=== PATIENT | female | born 1990 | race Caucasian/White ===

== ENCOUNTER 2023-02-14 12:16 | Outpatient (CLI) | payer BC, SELFPAY | END 2023-02-14 12:17 | disposition home or self-care (01) | LOC: NFLDREF 12:17 | PROVIDERS: PCP Family Medicine; Visit Provider Obstetrics & Gynecology | DX: Z32.02 Encounter for pregnancy test, result negative (principal) | CPT/HCPCS: 84702 ==

== ENCOUNTER 2023-03-03 09:48 | Emergency (ER) | payer BC, SELFPAY ==
[2023-03-03 09:55] VITALS: BP 119/72; PULSE 78; RESP 18; TEMP 36.8; O2SAT 97; BMI 40.8
--- NOTE | 2023-03-03 10:55 | ED.PREGNANCY ---
HPI - General Time Seen by Provider: 11:00 Date Seen: 03/03/23 Chief complaint: OB/Uterine Contractions Stated complaint: ectopic Time Seen by Provider: 03/03/23 10:55 Source: patient and RN notes reviewed Mode of arrival: ambulatory Limitations: no limitations History of Present Illness HPI Narrative: Patient is a 33-year-old female coming in with concern of possible ectopic . She last tract a menstrual cycle in November. Does not remember if she had 1 or forgot to write it down in December. She states has been a lot of stress. She typically is been very regular. She had a positive home test a couple of weeks ago. She has started having some lower pelvic cramping. There is no bleeding or vaginal discharge. No urinary symptoms. She has had 1 prior and has a 11-year-old child. Believe she has a positive. Again, no vaginal bleeding. She is still exhibiting symptoms nausea, breast tenderness and fatigue. She has not had any imaging this yet. Has had some lower pelvic pain. MD Complaint: abdominal pain and contractions Related Data Home Medications Medication Instructions Recorded Confirmed No Known Home Medications 03/03/23 03/03/23 Allergies Allergy/AdvReac Type Severity Reaction Status Date / Time Penicillins Allergy Intermediate Hives Verified 09/09/22 15:53 Review of Systems Status of ROS: Reports: 6 or more systems reviewed and unremarkable except as noted in History and below Exam Const: Vital Signs, click to edit/add: Vital Signs - 24 hr 03/03/23 09:55 Temperature 98.3 F Pulse Rate [Right Pulse Oximeter] 78 Respiratory Rate 18 Blood Pressure [Ri ght Upper Arm] 119/72 Pulse Oximetry 97 Oxygen Delivery Me thod Room Air Documenting provider has reviewed patient's vital signs: yes Common normals: no apparent distress, oriented x3, no limitations, healthy appearing, alert and well nourished General appearance: cooperative, comfortable, well kempt and well developed Nutritional appearance: obese HENMT: Common normals: normocephalic, head/scalp atraumatic, hearing grossly normal bilaterally, external nose normal, nasal mucous membranes and turbinates normal and moist oral mucous membranes Head and scalp: normocephalic and atraumatic Nose: external nose normal and nasal mucous membranes and turbinates normal Eye: Common normals: PERRL, EOMs intact bilaterally, conjunctivae normal and no scleral icterus Conjunctiva: conjunctiva(e) normal Pupil: PERRL Neck & C-Spine: Common normals: full ROM, no lymphadenopathy and supple Resp: Common normals: normal respiratory effort, no retractions, no use of accessory muscles and clear to auscultation bilaterally Effort & inspection: able to speak in complete sentences Auscultation: clear to auscultation bilaterally Cardio: Common normals: regular rate, regular rhythm, S1 normal heart sound, S2 normal heart sound, no gallops, no clicks, no murmurs and no rub Rate: regular rate Rhythm: regular rhythm Heart sounds: S1 normal and S2 normal GI: Common normals: Normal to inspection, nondistended, normoactive bowel sounds present, soft to palpation, no hepatosplenomegaly and no masses Palpation: soft and no hepatosplenomegaly Other: Body habitus does confound examination, do note some pelvic/suprapubic to right lower quadrant tenderness on palpation. No sense of rebound or guarding at this time. Neuro: Common normals: oriented x3 Sensorium/orientation: alert Psych: Appearance: well ket Course Course Hospital Course: Will be obtaining a limited obstetrical ultrasound, see if we can confirm a intrauterine and hopefully rule out ectopic . She understands will be doing some blood work with a CBC, quantitative hCG in case this needs following as well as confirming her blood type. She is not bleeding at this time however. Patient is currently hemodynamically stable. 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 I have reviewed with her that the radiologist has not confirmed her ultrasound, has not been read. It appears that there is the single intrauterine , her hCG level is at 42,000. However, the radiologist absolutely needs to over-read this. She is asking if she can go and I call her when the official read is in. I think it is reasonable. Time: 12:40 Reevaluation #2: Did call patient back with the normal ultrasound report with intrauterine and corpus luteum cyst. No discharge changes at this time, plan is as when she was provided verbal discharge while here. Time: 13:05 Vital Signs Vital signs: Initial Vital Signs Temperature 98.3 F 03/03/23 09:55 Temperature Source Temporal Artery Scan 03/03/23 09:55 Pulse Rate 78 03/03/23 09:55 Respiratory Rate 18 03/03/23 09:55 Blood Pressure 119/72 03/03/23 09:55 Blood Pressure Mean 87 03/03/23 09:55 Blood Pressure Position Sitting 03/03/23 09:55 Pulse Oximetry 97 03/03/23 09:55 Oxygen Delivery Method Room Air 03/03/23 09:55 Vital Signs Temperature 98.3 F 03/03/23 09:55 Pulse Rate 78 03/03/23 09:55 Respiratory Rate 18 03/03/23 09:55 Blood Pressure 119/72 03/03/23 09:55 Pulse Oximetry 97 03/03/23 09:55 Oxygen Delivery Method Room Air 03/03/23 09:55 Temperature 98.3 F 03/03/23 09:55 Pulse Rate 78 03/03/23 09:55 Respiratory Rate 18 03/03/23 09:55 Blood Pressure 119/72 03/03/23 09:55 Pulse Oximetry 97 03/03/23 09:55 Oxygen Delivery Method Room Air 03/03/23 09:55 MDM - OB/Uterine Contractions Lab Data Attestation: I reviewed the patient's lab results. Labs: Lab Results 03/03/23 Range/Units 11:05 WBC 7.82 (4.50-11.00) K/uL RBC 4.06 (4.00-5.20) m/uL Hgb 12.1 (12.0-16.0) gm/dL Hct 37.0 (33.0-51.0) % MCV 91 (80-100) fL MCH 30 (26-34) pg MCHC 33 (32-36) gm/dL RDW Coeff of Saw 13.0 (11.5-15.5) % Plt Count 270 (140-440) K/uL Neut % (Auto) 70.7 (42.0-72.0) % Lymph % (Auto) 21.7 (20-44) % [place] % (Auto) 6.4 (0.0-11.0) % Eos % (Auto) 0.6 (0.0-7.0) % Baso % (Auto) 0.3 (0.0-3.0) % Neut # (Auto) 5.53 (1.7-7.0) K/uL Lymph # (Auto) 1.70 (0.90-2.90) K/uL [place] # (Auto) 0.50 (0.00-0.90) K/UL Eos # (Auto) 0.05 (0.00-0.50) K/uL Baso # (Auto) 0.02 (0.00-0.30) K/uL HCG, Quant 99226.00 mIU/mL Blood Type A Positive Imaging Data Limited OB ultrasound: Attestation: I have reviewed the pertinent imaging results. My impression: Did briefly show patient pictures of the gestational sac while she was still here, still need to wait for radiologist over-read. Radiologist's impression: Patient: ROBER CANO Facility:?[facility] Patient ID:?[id number] Site Patient ID:?[id number]. Site :?[id number] Study:? OB Pelvis -03/03/2023 11:49:20 AM Ordering Physician:?Hawa Bain Final Report: INDICATION: Positive test, cramping TECHNIQUE: Ultrasound OB pelvis transvaginal. Real-time juan-scale imaging of the pelvis was performed. COMPARISON: None FINDINGS: Sonographic imaging demonstrates a single living intrauterine gestation. The embryo demonstrates a regular cardiac rate measuring 116 beats per minute. The embryo`s crown rump length measurement of 0.8 cm corresponds to a gestational age of 6 weeks 5 days with a sonographic due date of 10/22/2023. There is a normal appearing yolk sac. There are no gross abnormalities noted within the embryo at this early state of development. The placenta has not yet developed. There is no sign of perigestational hemorrhage. Maternal left ovarian corpus luteum measuring 2.1 centimeters. Trace free fluid. IMPRESSION: 1. Single live intrauterine gestation with a sonographic age of 6 weeks 5 days. 2. Maternal left ovarian corpus luteum. Dictated by Jb Watkins MD @ 03/03/2023 12:47:43 PM (Electronic Signature) Critical Care Time Critical Care Time Critical Care Time: No Discharge Plan Discharge Clinical Impression: Intrauterine , Abdominal cramping Patient Disposition: Home, Self-Care Condition: Stable Additional Instructions: Verbal instructions were given. I will call the patient with the formal ultrasound reading once it has been read by Radiology. She will keep her OB appointment that is scheduled for March 21. Have discussed that should she have increased cramping, development of any vaginal bleeding, would need re-evaluation. Prescriptions: No Action No Known Home Medications Follow Up/Referrals: Itz Stahl MD [Primary Care Provider] - Stand Alone Forms: [employer] Info Instructions
--- NOTE | 2023-03-03 11:00 | CRLHL7_ITS ---
For Patients: As a result of the Century Cures Act, medical imaging exams and procedure reports are released immediately into your electronic medical record. You may view this report before your referring provider. If you have questions, please contact your health care provider. INDICATION: Positive test, cramping TECHNIQUE: Ultrasound OB pelvis transvaginal. Real-time juan-scale imaging of the pelvis was performed. COMPARISON: None FINDINGS: Sonographic imaging demonstrates a single living intrauterine gestation. The embryo demonstrates a regular cardiac rate measuring 116 beats per minute. The embryo`s crown rump length measurement of 0.8 cm corresponds to a gestational age of 6 weeks 5 days with a sonographic due date of 10/22/2023. There is a normal appearing yolk sac. There are no gross abnormalities noted within the embryo at this early state of development. The placenta has not yet developed. There is no sign of perigestational hemorrhage. Maternal left ovarian corpus luteum measuring 2.1 centimeters. Trace free fluid. IMPRESSION: 1. Single live intrauterine gestation with a sonographic age of 6 weeks 5 days. 2. Maternal left ovarian corpus luteum. Dictated by Jb Watkins MD @ 03/03/2023 12:47:43 PM (Electronically Signed)
[2023-03-03 11:18] LABS: Basophils Absolute Auto 0.02 K/uL (0.00-0.30); Basophils Percent Auto 0.3 % (0.0-3.0); Eosinophils Absolute Auto 0.05 K/uL (0.00-0.50); Eosinophils Percent Auto 0.6 % (0.0-7.0); Hemoglobin* 12.1 gm/dL (12.0-16.0); Immature Granulocytes Abs Auto 0.02 K/uL (0.00-0.30); Immature Granulocytes Pct Auto 0.3 %; Lymphocytes Percent Auto 21.7 % (20-44); Mean Corpuscular HGB Conc 33 gm/dL (32-36); Mean Corpuscular Hemoglobin 30 pg (26-34); Mean Corpuscular Volume 91 fL (80-100); Monocytes Percent Auto 6.4 % (0.0-11.0); Neutrophils Absolute Auto 5.53 K/uL (1.7-7.0); Neutrophils Percent Auto 70.7 % (42.0-72.0); Platelet Count* 270 K/uL (140-440); Red Blood Count 4.06 m/uL (4.00-5.20); White Blood Count* 7.82 K/uL (4.50-11.00)
[2023-03-03 11:20] LABS: Slide Review Reflex No
--- NOTE | 2023-03-03 12:43 | PC.NURSE ---
Verbally discharged. Leave on tracker per Dr. Frances- she will call patient when final radiology report.
== END 2023-03-03 12:43 | disposition home or self-care (01) ==
PROVIDERS: Emergency Provider Family Medicine; PCP Family Medicine
DX: O26.891 Other specified pregnancy related conditions, first trimester (principal); R10.9 Unspecified abdominal pain
CPT/HCPCS: 36415; 76817; 84702; 85025; 86900; 86901; 99284

== ENCOUNTER 2023-05-22 14:38 | Outpatient (CLI) | payer BC, SELFPAY | END 2023-05-22 14:39 | disposition home or self-care (01) | LOC: NFLDREF 14:40 | PROVIDERS: PCP Family Medicine; Visit Provider Obstetrics & Gynecology | DX: N90.7 Vulvar cyst (principal) | CPT/HCPCS: 87070 ==

== ENCOUNTER 2023-05-26 23:24 | Emergency (ER) | payer BC, SELFPAY ==
[2023-05-26 23:31] VITALS: BP 126/69; PULSE 97; RESP 18; TEMP 36.2; O2SAT 98
[2023-05-27] VITALS (7 sets, daily range): BP systolic 105–117; BP diastolic 54–63; PULSE 77–105; O2SAT 96–98
[2023-05-27] MEDS: 0.9 % SODIUM CHLORIDE 1000 ml 1,000 ML IV (00:25)
--- NOTE | 2023-05-27 00:40 | ED_ITS ---
HPI - Abdominal Pain General Time Seen by Provider: 00:41 Date Seen: 05/27/23 Chief Complaint: Abdominal Pain Stated Complaint: 19 weeks, cramping Time Seen by Provider: 05/27/23 00:40 Source: patient, RN notes reviewed and old records reviewed Mode of arrival: ambulatory Limitations: no limitations History of Present Illness HPI narrative: 33-year-old 001 at 19 weeks gestation presents today with right-sided abdominal cramping that started yesterday. Worse with standing, better when laying on the right side. No urinary symptoms, has been constipated. Notes that she has not noted movement for couple of days, no leakage of fluid or vaginal bleeding. Prior appendectomy and cholecystectomy. No nausea or vomiting, no diarrhea but has been constipated. Related Data Previous Rx's Medication Instructions Recorded doxylamine 10 mg-pyridoxine (vit 1 tab PO QDAY #60 tabs 04/18/23 B6) 10 mg tablet,delayed release (Diclegis) vits no.126-ferrous fum 1 tab PO .QD #60 tabs 04/18/23 28 mg iron-folic acid 800 mcg tablet (Classic ) Allergies Allergy/AdvReac Type Severity Reaction Status Date / Time Penicillins Allergy Intermediate Hives Verified 05/22/23 14:04 [facility] Medical History (Updated 05/27/23 @ 02:26 by Nestor Levin MD) Genital herpes ?A60.00 - Herpesviral infection of urogenital system, unspecified (ICD-10) Tubo-ovarian abscess ?N70.93 - Salpingitis and oophoritis, unspecified (ICD-10) Surgical History (Updated 03/13/23 @ 14:35 by Germaine Horn PA-C) History of surgical removal of ganglion cyst ?Z98.890 - Other specified postprocedural states (ICD-10) History of laparoscopic cholecystectomy ?Z90.49 - Acquired absence of other specified parts of digestive tract (ICD- 10) History of appendectomy ?Z90.49 - Acquired absence of other specified parts of digestive tract (ICD- 10) Family History (Updated 03/13/23 @ 14:37 by Germaine Horn PA-C) Maternal Grandfather Depression Anxiety Paternal Grandmother Diabetes Uncle Diabetes Social History Smoking Status: Former smoker Do you use any of these nicotine containing products: None Second hand tobacco smoke exposure: No Little interest or pleasure in doing things: several days Feeling down, depressed, or hopeless: several days service: No Exam Narrative: Exam Narrative: General: Well-developed and well-nourished, no acute distress Head: Atraumatic and normocephalic Eyes: Pupils are equal reactive, extraocular motions intact, conjunctiva clear ENT: External nose and ears are normal, posterior pharynx without erythema or exudate Neck: No midline cervical tenderness, full spontaneous range of motion the neck, trachea midline, no adenopathy Heart: Regular rate and rhythm no murmurs or thrills Lungs: Clear to auscultation bilaterally without wheezes or crackles Abdomen: Gravid, right lower quadrant tenderness Musculoskeletal: No tenderness, deformity, or edema Neurologic: Awake, alert, and oriented x3, no gross focal neurologic deficits, cranial nerves intact as tested Psych: Mood and affect are appropriate Skin: No rashes Const: Vital Signs, click to edit/add: Vital Signs - 24 hr 05/26/23 23:31 05/27/23 00:57 05/27/23 01:00 Temperature 97.2 F L Pulse Rate 86 95 Pulse Rate [Left P ulse Oximeter] 97 Respiratory Rate 18 Blood Pressure Blood Pressure [Ri ght Upper Arm] 126/69 Pulse Oximetry 98 98 98 [facility] Room Air 05/27/23 01:01 05/27/23 01:15 05/27/23 01:30 Temperature Pulse Rate 94 83 105 H Pulse Rate [Left P ulse Oximeter] Respiratory Rate Blood Pressure 105/63 Blood Pressure [Ri ght Upper Arm] Pulse Oximetry 98 98 96 Oxygen Delivery Me thod 05/27/23 01:31 05/27/23 01:45 Temperature Pulse Rate 77 78 Pulse Rate [Left P ulse Oximeter] Respiratory Rate Blood Pressure 117/54 L Blood Pressure [Ri ght Upper Arm] Pulse Oximetry 98 96 Oxygen Delivery Dc thod Course Course Hospital Course: Patient seen and examined, prior records are reviewed. Patient presents today with right-sided abdominal pain in . Better when lying on that side, worse with standing. Marked right lower quadrant tenderness on exam, prior appendectomy cholecystectomy. Symptoms could be from round ligament pain, ovarian pathology. Colonic spasm also possible but will evaluate for other causes of abdominal pain as well. Tylenol ordered for pain initially. Reevaluation(s) Time of Reevaluation #1: 02:26 Reevaluation #1: Labs independently interpreted by me with normal CBC, reassuring basic panel, normal urinalysis. Ultrasound demonstrates mild intrauterine with no abnormalities of the right adnexa. Symptoms are most consistent with round ligament pain. Discussed diagnosis and plan with patient, she is stable for discharge. Vital Signs Vital signs: Initial Vital Signs Temperature 97.2 F L 05/26/23 23:31 Temperature Source Temporal Artery Scan 05/26/23 23:31 Pulse Rate 97 05/26/23 23:31 Pulse Rhythm Regular 05/26/23 23:31 Respiratory Rate 18 05/26/23 23:31 Blood Pressure 126/69 05/26/23 23:31 Blood Pressure Mean 88 05/26/23 23:31 Blood Pressure Position Sitting 05/26/23 23:31 Pulse Oximetry 98 05/26/23 23:31 Oxygen Delivery Method Room Air 05/26/23 23:31 Vital Signs Temperature 97.2 F L 05/26/23 23:31 Pulse Rate 97 05/26/23 23:31 Respiratory Rate 18 05/26/23 23:31 Blood Pressure 126/69 05/26/23 23:31 Pulse Oximetry 98 05/26/23 23:31 Oxygen Delivery Method Room Air 05/26/23 23:31 Temperature 97.2 F L 05/26/23 23:31 Pulse Rate 78 05/27/23 01:45 Respiratory Rate 18 05/26/23 23:31 Blood Pressure 117/54 L 05/27/23 01:31 Pulse Oximetry 96 05/27/23 01:45 Oxygen Delivery Method Room Air 05/27/23 00:57 MDM - Abdominal Pain Lab Data Labs: Lab Results 05/27/23 05/27/23 Range/Units 00:20 00:25 WBC 10.24 (4.50-11.00) K/uL RBC 3.58 L (4.00-5.20) m/uL Hgb 11.1 L (12.0-16.0) gm/dL Hct 32.7 L (33.0-51.0) % MCV 91 (80-100) fL MCH 31 (26-34) pg MCHC 34 (32-36) gm/dL RDW Coeff of Saw 13.7 (11.5-15.5) % Plt Count 211 (140-440) K/uL Neut % (Auto) 75.9 H (42.0-72.0) % Lymph % (Auto) 17.9 L (20-44) % [place] % (Auto) 4.6 (0.0-11.0) % Eos % (Auto) 0.5 (0.0-7.0) % Baso % (Auto) 0.2 (0.0-3.0) % Neut # (Auto) 7.80 H (1.7-7.0) K/uL Lymph # (Auto) 1.80 (0.90-2.90) K/uL [place] # (Auto) 0.50 (0.00-0.90) K/UL Eos # (Auto) 0.05 (0.00-0.50) K/uL Baso # (Auto) 0.02 (0.00-0.30) K/uL Abs Immat Gran (auto) 0.09 (0.00-0.30) K/uL Imm/Tot Granulo (auto) 0.9 % Sodium 137 (135-149) mmol/L Potassium 3.6 (3.6-5.1) mmol/L Chloride 103 (96-114) mmol/L Carbon Dioxide 25 (20-32) mmol/L BUN 6 (5-24) mg/dL Creatinine 0.4 L (0.5-1.5) mg/dL Estimated GFR 136 ml/min Glucose 86 (60-115) mg/dL Calcium 9.6 (8.4-10.6) mg/dL Urine Color Yellow (Yellow) Urine Appearance Clear (Clear) Urine pH 6.5 (5.0-8.5) Ur Specific [place] 1.020 (1.000-1.030) Urine Protein Negative (Negative) Urine Glucose (UA) Negative (Negative) Urine Ketones Negative (Negative) Urine Blood Negative (Negative) Urine Nitrite Negative (Negative) Urine Bilirubin Negative (Negative) Urine Urobilinogen 0.2 (0.2-1.0) Ur Leukocyte Esterase Negative (Negative) Urine RBC 0-2 (0-2) Urine WBC 0-2 (0-5) Ur Squamous Epith Cells Few (None-Few) Amorphous Sediment Few A (None) Urine Bacteria Few A (None) Discharge Plan Discharge Clinical Impression: Pain of round ligament Patient Disposition: Home, Self-Care Condition: Stable Instructions: Abdominal Pain in (ED) Activity Level: Activity as Tolerated Discharge Diet: Regular Prescriptions: No Action Classic 28 mg iron- 800 mcg tablet 1 tab PO .QD Qty: 60 3RF doxylamine-pyridoxine (vit B6) [Diclegis] 10-10 mg tablet,delayed release (DR/EC) 1 tab PO QDAY Qty: 60 0RF Follow Up/Referrals: Itz Stahl MD [Staff Physician] - Stand Alone Forms: [facility] Info Instructions
[2023-05-27 00:45] LABS: Appearance Urine Clear (Clear); Bilirubin Urine Negative (Negative); Blood Urine Negative (Negative); Color Urine Yellow (Yellow); Glucose Urine Negative (Negative); Ketones Urine Negative (Negative); Leukocyte Esterase Urine Negative (Negative); Nitrite Urine Negative (Negative); Protein Urine Negative (Negative); Urobilinogen Urine 0.2 (0.2-1.0); pH Urine 6.5 (5.0-8.5)
[2023-05-27 00:45] LABS: Basophils Absolute Auto 0.02 K/uL (0.00-0.30); Basophils Percent Auto 0.2 % (0.0-3.0); Eosinophils Absolute Auto 0.05 K/uL (0.00-0.50); Eosinophils Percent Auto 0.5 % (0.0-7.0); Hematocrit 32.7 % (33.0-51.0); Hemoglobin* 11.1 gm/dL (12.0-16.0); Immature Granulocytes Abs Auto 0.09 K/uL (0.00-0.30); Immature Granulocytes Pct Auto 0.9 %; Lymphocytes Percent Auto 17.9 % (20-44); Mean Corpuscular HGB Conc 34 gm/dL (32-36); Mean Corpuscular Hemoglobin 31 pg (26-34); Mean Corpuscular Volume 91 fL (80-100); Monocytes Percent Auto 4.6 % (0.0-11.0); Neutrophils Percent Auto 75.9 % (42.0-72.0); Platelet Count* 211 K/uL (140-440); RDW Coefficient of Variation % 13.7 % (11.5-15.5); Red Blood Count 3.58 m/uL (4.00-5.20); White Blood Count* 10.24 K/uL (4.50-11.00)
[2023-05-27 00:48] LABS: Slide Review Reflex No
[2023-05-27] MEDS: ACETAMINOPHEN 500 MG TABLET 1000 MG PO (00:53)
[2023-05-27 00:56] LABS: Amorphous Sediment Urine Few; Bacteria Urine Few; RBC Urine 0-2 (0-2); Squamous Epithelial Cell Urine Few (None-Few); WBC Urine 0-2 (0-5)
--- NOTE | 2023-05-27 01:02 | CRLHL7_ITS ---
For Patients: As a result of the Century Cures Act, medical imaging exams and procedure reports are released immediately into your electronic medical record. You may view this report before your referring provider. If you have questions, please contact your health care provider. INDICATION: Decreased movement, right lower quadrant pain. TECHNIQUE: Ultrasound OB pelvis transabdominal. Real-time juan-scale imaging of the fetus was performed. COMPARISON: None. FINDINGS: Sonographic imaging demonstrates a single living intrauterine gestation. Fetus demonstrates a regular cardiac rate of 150 beats per minute. Fetus has a breech orientation. The placenta lies posterior. Amniotic fluid volume appears normal, with single deepest pocket measuring 5.1 cm. The cervix measures 4.9 cm. The right ovary is unremarkable. The left ovary is not visualized due to adjacent bowel gas. IMPRESSION.: Viable intrauterine . Dictated by Braden Magana MD @ 05/27/2023 2:12:39 AM (Electronically Signed)
[2023-05-27 01:11] LABS: Chloride* 103 mmol/L (96-114); Sodium* 137 mmol/L (135-149)
[2023-05-27 01:12] LABS: Potassium* 3.6 mmol/L (3.6-5.1)
[2023-05-27 01:14] LABS: Carbon Dioxide* 25 mmol/L (20-32); Creatinine* 0.4 mg/dL (0.5-1.5); Estimated Glomerular Filt Rate 136 ml/min
[2023-05-27 01:15] LABS: Blood Urea Nitrogen* 6 mg/dL (5-24); Calcium* 9.6 mg/dL (8.4-10.6); Glucose* 86 mg/dL (60-115)
--- NOTE | 2023-05-27 02:39 | ED.NURSE ---
prior to discharge, pt removed IV on her own. cath appeared intact.
== END 2023-05-27 02:40 | disposition home or self-care (01) ==
PROVIDERS: Emergency Provider Family Medicine; PCP Obstetrics & Gynecology
DX: R10.9 Unspecified abdominal pain (principal); Z3A.19 19 weeks gestation of pregnancy
CPT/HCPCS: 36415; 76815; 80048; 81001; 85025; 87086; 93976; 99283; 99284; A9270; J7030

== ENCOUNTER 2023-06-05 08:29 | Outpatient (CLI) | payer BC, SELFPAY | END 2023-06-05 08:30 | disposition home or self-care (01) | LOC: NFLDREF 18:21 | PROVIDERS: Visit Provider Obstetrics & Gynecology | DX: Z34.92 Encounter for supervision of normal pregnancy, unspecified, second trimester (principal); Z3A.20 20 weeks gestation of pregnancy | CPT/HCPCS: 82951; 82952 ==

== ENCOUNTER 2023-08-01 08:42 | Outpatient (CLI) | payer BC, SELFPAY | END 2023-08-01 08:43 | disposition home or self-care (01) | LOC: NFLDREF 08-04 08:13 | PROVIDERS: Visit Provider Physician Assistant | DX: Z34.90 Encounter for supervision of normal pregnancy, unspecified, unspecified trimester (principal); E66.01 Morbid (severe) obesity due to excess calories | CPT/HCPCS: 82951; 82952; 86592 ==

== ENCOUNTER 2023-09-01 14:46 | Outpatient (CLI) | payer BC, SELFPAY ==
--- NOTE | 2023-09-01 15:00 | CRLHL7_ITS ---
For Patients: As a result of the Century Cures Act, medical imaging exams and procedure reports are released immediately into your electronic medical record. You may view this report before your referring provider. If you have questions, please contact your health care provider. INDICATION: BMI greater than 4 TECHNIQUE: Real time juan scale imaging of the fetus was performed. COMPARISON: 05/27/2023 FINDINGS: Sonographic imaging demonstrates a single living intrauterine gestation. Fetus demonstrates a regular cardiac rate of 141 beats per minute. Fetus has a vertex position. The placenta lies fundal posterior. Amniotic fluid volume appears normal and there is a single deepest pocket of 3.3 cm. The estimated weight is 2379gm which lies at the 85th %. BPD 79th percentile. HC 76th percentile. AC 95th percentile. FL 38th percentile. The fetus was active and demonstrated normal breathing movements. There was normal flexion and extension of the trunk and extremities. IMPRESSION: Normal biophysical profile score 8/8. Sonographic gestational age 34 weeks 1 day and sonographic due date 10/12/2023. Sonographic age is 10 days ahead of the clinical age. Estimated weight 85th percentile. Abdominal circumference 95th percentile. Dictated by Shane Fu MD @ 09/03/2023 6:28:09 AM (Electronically Signed)
== END 2023-09-01 14:47 | disposition home or self-care (01) ==
LOC: US 14:47
PROVIDERS: Visit Provider Physician Assistant
DX: O99.213 Obesity complicating pregnancy, third trimester (principal); Z3A.34 34 weeks gestation of pregnancy
CPT/HCPCS: 76816; 76819

== ENCOUNTER 2023-09-05 11:58 | Outpatient (CLI) | payer BC, SELFPAY ==
--- NOTE | 2023-09-05 12:15 | CRLHL7_ITS ---
For Patients: As a result of the Century Cures Act, medical imaging exams and procedure reports are released immediately into your electronic medical record. You may view this report before your referring provider. If you have questions, please contact your health care provider. INDICATION: Obesity COMPARISON: 09/01/2023 TECHNIQUE: Real time juan scale imaging of the fetus was performed. Without non-stress testing. FINDINGS: Sonographic imaging demonstrates a single living intrauterine gestation. Fetus demonstrates a regular cardiac rate of 149 beats per minute. Fetus has a vertex position. The amniotic fluid volume appears normal and there is a single deepest pocket measurement of 6.8 cm. The fetus was active and demonstrated normal breathing movements. There was normal flexion and extension of the trunk and extremities. IMPRESSION: Normal biophysical profile score of 8 out of 8. Dictated by Shane Fu MD @ 09/05/2023 1:18:49 PM (Electronically Signed)
== END 2023-09-05 11:59 | disposition home or self-care (01) ==
LOC: US 11:59
PROVIDERS: Visit Provider Physician Assistant
DX: O99.210 Obesity complicating pregnancy, unspecified trimester (principal); E66.01 Morbid (severe) obesity due to excess calories
CPT/HCPCS: 76819

== ENCOUNTER 2023-09-12 12:09 | Outpatient (CLI) | payer BC, SELFPAY ==
--- NOTE | 2023-09-12 12:15 | CRLHL7_ITS ---
For Patients: As a result of the Century Cures Act, medical imaging exams and procedure reports are released immediately into your electronic medical record. You may view this report before your referring provider. If you have questions, please contact your health care provider. INDICATION: OBESITY COMPARISON: 09/05/2023 TECHNIQUE: Real time juan scale imaging of the fetus was performed. Without non-stress testing. FINDINGS: Sonographic imaging demonstrates a single living intrauterine gestation. Fetus demonstrates a regular cardiac rate of 141 beats per minute. Fetus has a vertex position. The amniotic fluid volume appears normal and there is a single deepest pocket measurement of 4.1 cm. The fetus was active and demonstrated normal breathing movements. There was normal flexion and extension of the trunk and extremities. IMPRESSION: Normal biophysical profile score of 8 out of 8. Dictated by Shane Fu MD @ 09/12/2023 2:20:34 PM (Electronically Signed)
== END 2023-09-12 12:10 | disposition home or self-care (01) ==
LOC: US 12:10
PROVIDERS: PCP Physician Assistant; Visit Provider Physician Assistant
DX: O99.210 Obesity complicating pregnancy, unspecified trimester (principal); E66.01 Morbid (severe) obesity due to excess calories
CPT/HCPCS: 76819

== ENCOUNTER 2023-09-19 12:58 | Outpatient (CLI) | payer BC, SELFPAY ==
--- NOTE | 2023-09-19 13:00 | CRLHL7_ITS ---
For Patients: As a result of the Century Cures Act, medical imaging exams and procedure reports are released immediately into your electronic medical record. You may view this report before your referring provider. If you have questions, please contact your health care provider. INDICATION: Morbid obesity COMPARISON: 09/12/2023 TECHNIQUE: Real time juan scale imaging of the fetus was performed. Without non-stress testing. FINDINGS: Sonographic imaging demonstrates a single living intrauterine gestation. Fetus demonstrates a regular cardiac rate of 131 beats per minute. Fetus has a vertex position. The amniotic fluid volume appears normal and there is a single deepest pocket measurement of 5.0 cm. The fetus was active and demonstrated normal breathing movements. There was normal flexion and extension of the trunk and extremities. IMPRESSION: Normal biophysical profile score of 8 out of 8. Dictated by Shane Fu MD @ 09/19/2023 2:07:37 PM (Electronically Signed)
== END 2023-09-19 12:59 | disposition home or self-care (01) ==
PROVIDERS: PCP Physician Assistant; Visit Provider Physician Assistant
DX: O99.210 Obesity complicating pregnancy, unspecified trimester (principal); E66.01 Morbid (severe) obesity due to excess calories
CPT/HCPCS: 76819

== ENCOUNTER 2023-09-26 10:06 | Outpatient (CLI) | payer BC, SELFPAY ==
--- NOTE | 2023-09-26 10:15 | CRLHL7_ITS ---
For Patients: As a result of the Century Cures Act, medical imaging exams and procedure reports are released immediately into your electronic medical record. You may view this report before your referring provider. If you have questions, please contact your health care provider. INDICATION: Elevated BMI TECHNIQUE: Real time juan scale imaging of the fetus was performed. COMPARISON: 09/19/2023 FINDINGS: Sonographic imaging demonstrates a single living intrauterine gestation. Fetus demonstrates a regular cardiac rate of 138 beats per minute. Fetus has a vertex position. The placenta lies fundal posterior. Amniotic fluid volume appears normal and there is a single deepest pocket of 4.6 cm. The estimated weight is 3220gm which lies at the 83rd %. On the prior OB ultrasound dated 09/01/2023 the estimated weight was at the 85th percentile. BPD 96th percentile. HC 71st percentile. AC 85th percentile. FL 70th percentile. The fetus was active and demonstrated normal breathing movements. There was normal flexion and extension of the trunk and extremities. IMPRESSION: Normal biophysical profile score 8/8. Sonographic gestational age 37 weeks 5 days and sonographic due date 10/12/2023. Sonographic age 10 days ahead of the clinical age. Estimated weight 83rd percentile. Abdominal circumference 85th percentile. Dictated by Shane Fu MD @ 09/30/2023 6:09:46 AM (Electronically Signed)
== END 2023-09-26 10:07 | disposition home or self-care (01) ==
PROVIDERS: Visit Provider Obstetrics & Gynecology
DX: O99.213 Obesity complicating pregnancy, third trimester (principal); Z68.41 Body mass index [BMI] 40.0-44.9, adult; Z3A.37 37 weeks gestation of pregnancy
CPT/HCPCS: 76816; 76819; 87081; 87653

== ENCOUNTER 2023-09-30 19:16 | Outpatient (CLI) | payer BC, SELFPAY ==
[2023-09-30 19:50] VITALS: BP 137/69; PULSE 89; TEMP 37.4
[2023-09-30 19:52] VITALS: PULSE 97; O2SAT 97
[2023-09-30 20:36] LABS: Hematocrit 35.4 % (33.0-51.0); Hemoglobin* 11.8 gm/dL (12.0-16.0); Mean Corpuscular HGB Conc 33 gm/dL (32-36); Mean Corpuscular Hemoglobin 32 pg (26-34); Mean Corpuscular Volume 97 fL (80-100); Platelet Count* 169 K/uL (140-440); Red Blood Count 3.67 m/uL (4.00-5.20); White Blood Count* 6.75 K/uL (4.50-11.00)
[2023-09-30 20:43] VITALS: BP 130/77; PULSE 95
[2023-09-30 20:45] LABS: Slide Review Reflex No
--- NOTE | 2023-09-30 20:50 | W.PM.OBO ---
OB Outpatient HPI History of Present Illness Date Seen: 09/30/23 History of Present Illness: 33 year old at 36 3/7 weeks' gestation presents to Center with chief complaint of upper and lower abdominal pain. This started this evening, and was initially severe. She reports that the pain in her upper abdomen was initially in the epigastric region, but has since resolved. However, her pain in her lower, central abdomen. She denies any headache or visual changes. Denies any heartburn. No nausea or vomiting. She did have decreased movement before presenting to the Center. She denies any bleeding or loss of fluid. has been otherwise complicated by/notable for: 1. 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 Posterior placenta, no previa. KARISSA normal. No anomalies Growth at 32weeks Weekly surveillance at 32 weeks Early 1 hour GTT at 16-20 weeks: failed one hour, passed three hour. 3 hour GTT at 28 weeks: fasting elevated, remainder normal. No GDM Weekly testing at 32 weeks USN for EFW at 32wks 09/01/2023: Vtx, SDP: 3.3cm. EFW: 2379 g, 5 lb 4 oz, 85%. BPD 79%, HC 76%, AC 95%, FL 38%. BPP 06/03 Repeat US 09/26: cephalic, SDP 4.6, BPP 06/03, EFW 83%, BPD 96%, HC 71%, AC 85%, FL 70%. 2. Vaping, planning on quitting 3. Depression. Managing well with the therapy - [facility] [employer] [facility] - Fluoxetine made her suicidal 4. Outside records: history of genital herpes - Patient reports that she's never had genital herpes. She takes acyclovir for oral herpes when she has an outbreak - She does have hidradenitis suppurativa so she will have sores in her vulva area intermittently - Did not need Herpes ppx last - Patient will let us know if she has any concerning sores. 5. Anemia, hemoglobin 10.1 at 28 weeks Ferrous sulfate 325 every other day Hemoglobin at 34 weeks: 11.6 Meds Home Medications and Allergies Allergies Allergy/AdvReac Type Severity Reaction Status Date / Time Penicillins Allergy Intermediate Hives Verified 09/19/23 14:03 [facility] Medical History (Updated 09/30/23 @ 20:55 by Ebonie Ashley MD) History of vaginal delivery (2010) Genital herpes ?A60.00 - Herpesviral infection of urogenital system, unspecified (ICD-10) Vulvar abscess (05/22/23) ?N76.4 - Abscess of vulva (ICD-10) Tubo-ovarian abscess ?N70.93 - Salpingitis and oophoritis, unspecified (ICD-10) Surgical History (Updated 06/02/23 @ 10:40 by Jessica Pham) History of surgical removal of ganglion cyst (12/29/14) ?Z98.890 - Other specified postprocedural states (ICD-10) History of laparoscopic cholecystectomy ?Z90.49 - Acquired absence of other specified parts of digestive tract (ICD-10) History of appendectomy ?Z90.49 - Acquired absence of other specified parts of digestive tract (ICD-10) Family History (Updated 03/13/23 @ 14:37 by Germaine Horn PA-C) Maternal Grandfather Depression Anxiety Paternal Grandmother Diabetes Uncle Diabetes Social History Smoking Status: Current every day smoker Do you use any of these nicotine containing products: None Second hand tobacco smoke exposure: No Little interest or pleasure in doing things: not at all Feeling down, depressed, or hopeless: several days service: No History History 2 Elective abortions 0 Para 1 Spontaneous abortions 0 Hx # Term Pregnancies 1 Ectopic pregnancies 0 Hx # Pregnancies Multiple births 0 Number of Living Children 1 Past Pregnancies Del. Date GA/Weeks Outcome Route wt Inf Gender Labor Lgth Anesthesia Location Provider Compli 06/08/11 40 live - full term vaginal delivery 8 lb 4 oz Male 5HRS epidural [facility] - H&P: Exam Physical Exam Vital signs: Temp Pulse BP Pulse Ox 99.3 F 95 130/77 97 09/30/23 19:50 09/30/23 20:43 09/30/23 20:43 09/30/23 19:52 Narrative: General: Pleasant, no acute distress Abdomen: No right upper quadrant tenderness, no epigastric tenderness. Uterus soft, nontender, gravid, cephalic lie. Discomfort noted to palpation over her lower uterine segment and of pubic bone. Lower extremities: No edema or erythema Sterile cervical exam: 2 cm, 50%, -3, posterior, firm tracing: Baseline 140, accelerations present, no decelerations, moderate variability. Reactive, reassuring nonstress test. [place]: Contractions irregular and infrequent. Labs Labs Laboratory Tests 09/30/23 09/30/23 Range/Units 20:29 19:58 WBC 6.75 (4.50-11.00) K/uL RBC 3.67 L (4.00-5.20) m/uL Hgb 11.8 L (12.0-16.0) gm/dL Hct 35.4 (33.0-51.0) % MCV 97 (80-100) fL MCH 32 (26-34) pg MCHC 33 (32-36) gm/dL Plt Count 169 (140-440) K/uL BUN Pending Creatinine Pending Estimated GFR Pending AST Pending Membrane Rupture Pending Vaginal Trichomonas Pending Vaginal Yeast Pending Vaginal Clue Cells Pending BUN, Cr, AST normal for membrane rupture negative Wet prep negative, <20% clue cells Assessment and Plan Assessment and plan (1) Abdominal pain complicating : Status: Acute Assessment and Plan: Pubic symphysis pain. She is not experiencing severe pain at time of our exam. I recommended belly support belt, Tylenol, and consideration of PT> She is to follow up in clinic as scheduled.
[2023-09-30 20:53] LABS: Amnisure Rom* Negative
[2023-09-30 20:53] LABS: Aspartate Amino Transferase* 21 U/L (12-35); Blood Urea Nitrogen* 4 mg/dL (5-24); Creatinine* 0.4 mg/dL (0.5-1.5); Estimated Glomerular Filt Rate 136 ml/min
[2023-09-30 20:59] LABS: Trichomonas No Trichomonas Seen (None Seen); Yeast No Yeast Seen (None Seen)
[2023-09-30 21:00] LABS: Clue Cells <20% Clue Cells Seen (None Seen)
[2023-09-30 21:02] LABS: Alanine Aminotransferase* 13 U/L (4-35)
[2023-09-30 21:07] LABS: Appearance Urine Clear (Clear); Bilirubin Urine Negative (Negative); Blood Urine Negative (Negative); Color Urine Yellow (Yellow); Glucose Urine Negative (Negative); Ketones Urine Negative (Negative); Leukocyte Esterase Urine Negative (Negative); Nitrite Urine Negative (Negative); Protein Urine Negative (Negative); Specific Gravity Urine 1.015 (1.000-1.030); Urobilinogen Urine 0.2 (0.2-1.0)
[2023-09-30 21:21] LABS: Total Protein Urine 8 mg/dL
[2023-09-30 21:22] LABS: Creatinine Urine 75.6 mg/dL
[2023-09-30 21:32] LABS: RBC Urine 0-2 (0-2); Squamous Epithelial Cell Urine Few (None-Few); WBC Urine 0-2 (0-5)
[2023-09-30 21:33] VITALS: BP 138/66; PULSE 88
--- NOTE | 2023-10-01 00:24 | PC.OBNST ---
NST Note NST Note Start: 09/30/23 19:23 Freq: ONCE Status: Active Protocol: Document 09/30/23 19:23 ZHAO (Rec: 10/01/23 00:24 ZHAO [id number]) NST Note 2 Para (# of births) 1 EDC 10/22/23 Gestational Age In Weeks & Days 37 Weeks & 0 Days Patient Presented with Complaint(s) of Pain If Pain, describe location pelvic pain and abdominal pain Reactive Yes Appropriate for Gestational Age Yes RN Shari Tyson RN Date 09/30/23 Reactive Yes Appropriate for Gestational Age Yes SASHA Castro RN Date 09/30/23 OB NST charge Yes Complete NST Note via Write Note Yes The provider's electronic signature indicates the NST is reactive/appropriate for gestational age. *Note to provider: If an addendum is required, open the patient's chart and click on the note under the Nurse/Allied Health tab.
== END 2023-09-30 22:15 | disposition home or self-care (01) ==
LOC: OB OUT 19:20 → OB 19:21
PROVIDERS: Visit Provider Obstetrics & Gynecology
DX: O26.899 Other specified pregnancy related conditions, unspecified trimester (principal); R10.9 Unspecified abdominal pain; Z3A.37 37 weeks gestation of pregnancy
CPT/HCPCS: 36415; 59025; 81001; 82565; 82570; 84112; 84156; 84450; 84460; 84520; 85027; 87086; 87210; 99213

== ENCOUNTER 2023-10-03 09:59 | Outpatient (CLI) | payer BC, SELFPAY ==
--- NOTE | 2023-10-03 10:15 | CRLHL7_ITS ---
For Patients: As a result of the Century Cures Act, medical imaging exams and procedure reports are released immediately into your electronic medical record. You may view this report before your referring provider. If you have questions, please contact your health care provider. INDICATION: Morbid obesity BMI<40 COMPARISON: 09/26/2023 TECHNIQUE: Real time juan scale imaging of the fetus was performed. FINDINGS: Sonographic imaging demonstrates a single living intrauterine gestation. Fetus demonstrates a regular cardiac rate of 167 beats per minute. Fetus has a vertex position. The amniotic fluid volume appears normal and there is a single deepest pocket measurement of 4.8 cm. The fetus was active and demonstrated normal breathing movements. There was normal flexion and extension of the trunk and extremities. IMPRESSION: Normal biophysical profile score of 8 out of 8. Dictated by Shane Fu MD @ 10/03/2023 11:10:01 AM (Electronically Signed)
== END 2023-10-03 10:00 | disposition home or self-care (01) ==
LOC: US 10:00
PROVIDERS: Visit Provider Physician Assistant
DX: O99.210 Obesity complicating pregnancy, unspecified trimester (principal)
CPT/HCPCS: 76819

== ENCOUNTER 2023-10-10 10:35 | Outpatient (CLI) | payer BC, SELFPAY ==
--- NOTE | 2023-10-10 10:15 | CRLHL7_ITS ---
For Patients: As a result of the Century Cures Act, medical imaging exams and procedure reports are released immediately into your electronic medical record. You may view this report before your referring provider. If you have questions, please contact your health care provider. INDICATION: BMI < 40 COMPARISON: 10/03/2023 TECHNIQUE: Real time juan scale imaging of the fetus was performed. Without non-stress testing. FINDINGS: Sonographic imaging demonstrates a single living intrauterine gestation. Fetus demonstrates a regular cardiac rate of 133 beats per minute. Fetus has a vertex position. The amniotic fluid volume appears normal and there is a single deepest pocket measurement of 5.7 cm. The fetus was active and demonstrated normal breathing movements. There was normal flexion and extension of the trunk and extremities. IMPRESSION: Normal biophysical profile score of 8 out of 8. Dictated by Shane Fu MD @ 10/10/2023 11:27:09 AM (Electronically Signed)
== END 2023-10-10 10:36 | disposition home or self-care (01) ==
LOC: US 10:36
PROVIDERS: Visit Provider Physician Assistant
DX: O99.210 Obesity complicating pregnancy, unspecified trimester (principal)
CPT/HCPCS: 76819

== ENCOUNTER 2023-10-14 15:49 | Inpatient (IN) | payer BC, SELFPAY ==
[2023-10-14 16:08] VITALS: BMI 42.1
[2023-10-14 16:14] VITALS: BP 125/74; PULSE 83; RESP 16; TEMP 36.8
--- NOTE | 2023-10-14 18:21 | P.LDBA_ITS ---
Subjective History of Present Illness Time Seen by Provider: 18:21 Date Seen: 10/14/23 Narrative: Patient is being admitted to Labor and Delivery for elective induction of labor. She is a 33 year old at 38 6/7 weeks gestation. 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 Other risk factors noted below. She has been experiencing some intermittent uterine contractions since her last cervical examination. Her full history and physical was dictated by Dr. Mckeon on 10/03/2023. Please see this for details. Specific Issues/Plans Fiance: Venkatesh. 12yo son: Josué. Baby: [place] 1. 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 Posterior placenta, no previa. KARISSA normal. No anomalies * Growth at 32weeks * Weekly surveillance at 32 weeks * Early 1 hour GTT at 16-20 weeks: failed one hour, passed three hour. * 3 hour GTT at 28 weeks: fasting elevated, remainder normal. No GDM * Weekly testing at 32 weeks * USN for EFW at 32wks 09/01/2023: Vtx, SDP: 3.3cm. EFW: 2379 g, 5 lb 4 oz, 85%. BPD 79%, HC 76%, AC 95%, FL 38%. BPP 06/03 * Repeat US 09/26: cephalic, SDP 4.6, BPP 06/03, EFW 83%, BPD 96%, HC 71%, AC 85%, FL 70%. 2. Vaping, planning on quitting 3. Depression. Managing well with the therapy - [facility] - Fluoxetine made her suicidal 4. Outside records: history of genital herpes - Patient reports that she's never had genital herpes. She takes acyclovir for oral herpes when she has an outbreak - She does have hidradenitis suppurativa so she will have sores in her vulva area intermittently - Did not need Herpes ppx last - Patient will let us know if she has any concerning sores. 5. Anemia, hemoglobin 10.1 at 28 weeks * Ferrous sulfate 325 every other day * Hemoglobin at 34 weeks: 11.6 Tdap: 08/01/23 Flu: declines Covid: declines RSV: 09/12/23 H&P: Dr. Mckeon on 10/03/23 OB - Problem Based A/P Additional Plan (1) Encounter for induction of labor: Status: Acute Plan The patient and I reviewed the relative risks and benefits of labor induction as well as labor induction methods. The head is well applied to the cervix and the patient's Munoz score is more favorable today than it was 4 days ago. Because the patient has already been here for a couple of hours while we were awaiting test results on another patient to determine whether not the induction could be started today, we will go ahead and start the cervical ripening. I would recommend using misoprostol. The patient understands that the medication could precipitate active labor overnight in she is willing to take this risk. We reviewed pain control options available to her, including morphine and Vistaril, nitrous oxide gas, and epidural. Her questions were answered. Delivery/Labor/Induction Plan Induction method: per misoprostol protocol (Vaginal misoprostol q.4 hours) OB Result Labs Blood Type: A (+) positive Rubella: immune RPR/VDLR: nonreactive GBS Status: negative HBsAG: negative OB Exam Physical Exam Vital signs: Temp Pulse Resp BP 98.3 F 83 16 125/74 10/14/23 16:14 10/14/23 16:14 10/14/23 16:14 10/14/23 16:14 Narrative: General: No acute distress Psych: Alert and oriented x4, full affect HEENT: Normocephalic, atraumatic Neck: No cervical adenopathy, no thyromegaly Heart: Regular rate and rhythm, no murmur rub or gallop Lungs: Clear to auscultation bilaterally Abdomen: Gravid. soft, no tenderness, rebound, or guarding. Lower extremities: 3+ lower extremity edema Detailed Labor and Delivery Exam Patient Gravid: Yes Dilation (cm): 3 Effacement (%): 75 Cervix position: posterior Consistency: medium Fetus (Single) Station: -2 Heart Rate Baseline: 135 Monitor Accelerations: Present Monitor Decelerations: None Director Of Kids Variability: Moderate (6-25)
[2023-10-14 18:25] VITALS: BP 126/74; PULSE 85; RESP 16; TEMP 36.6
[2023-10-14] MEDS: miSOPROStoL 25 MCG/0.25 TABLET VAGINAL (18:26)
[2023-10-14 18:54] LABS: Basophils Absolute Auto 0.02 K/uL (0.00-0.30); Basophils Percent Auto 0.3 % (0.0-3.0); Eosinophils Absolute Auto 0.02 K/uL (0.00-0.50); Eosinophils Percent Auto 0.3 % (0.0-7.0); Hematocrit 35.8 % (33.0-51.0); Hemoglobin* 12.1 gm/dL (12.0-16.0); Immature Granulocytes Abs Auto 0.03 K/uL (0.00-0.30); Immature Granulocytes Pct Auto 0.4 %; Lymphocytes Absolute Auto 1.43 K/uL (0.90-2.90); Lymphocytes Percent Auto 20.8 % (20-44); Mean Corpuscular HGB Conc 34 gm/dL (32-36); Mean Corpuscular Hemoglobin 32 pg (26-34); Mean Corpuscular Volume 95 fL (80-100); Monocytes Percent Auto 6.1 % (0.0-11.0); Neutrophils Percent Auto 72.1 % (42.0-72.0); Platelet Count* 168 K/uL (140-440); RDW Coefficient of Variation % 14.4 % (11.5-15.5); Red Blood Count 3.77 m/uL (4.00-5.20); White Blood Count* 6.86 K/uL (4.50-11.00)
[2023-10-14 18:56] LABS: Slide Review Reflex No
[2023-10-14 22:47] VITALS: BP 137/74; PULSE 74; TEMP 36.7
[2023-10-15] VITALS (31 sets, daily range): BP systolic 107–163; BP diastolic 56–89; PULSE 72–174; RESP 16–18; TEMP 36.4–37.2; O2SAT 93–100
[2023-10-15] MEDS: LACTATED RINGERS 1000 ML 1,000 ML 999 ML IV ×2 (04:33→05:23)
[2023-10-15] MEDS: LIDOCAINE 2% (PF) 5 ML VIAL EPIDURAL (05:22)
[2023-10-15] MEDS: fentaNYL 250 MCG/5 ML inj 100 MCG EPIDURAL (05:22)
[2023-10-15] MEDS: ROPIVACAINE 0.2% 100 ml 100 ML 12 MG EPIDURAL (05:23)
--- NOTE | 2023-10-15 05:33 | P.ANBPRC_ITS ---
[facility] Medical History History of vaginal delivery (2010) Genital herpes ?A60.00 - Herpesviral infection of urogenital system, unspecified (ICD-10) Vulvar abscess (05/22/23) ?N76.4 - Abscess of vulva (ICD-10) Tubo-ovarian abscess ?N70.93 - Salpingitis and oophoritis, unspecified (ICD-10) Surgical History History of surgical removal of ganglion cyst (12/29/14) ?Z98.890 - Other specified postprocedural states (ICD-10) History of laparoscopic cholecystectomy ?Z90.49 - Acquired absence of other specified parts of digestive tract (ICD- 10) History of appendectomy ?Z90.49 - Acquired absence of other specified parts of digestive tract (ICD- 10) Family History Maternal Grandfather Depression Anxiety Paternal Grandmother Diabetes Uncle Diabetes Social History What is your current living situation?: I presently have a place to live Problems where you live: no known problems In the past 12 months, utilities in danger of being shut off: no In past 12 months, lack of transportation kept you from medical appts, meetings, work, or getting things needed for daily living: no In the past 12 mos, have been you worried that your food would run out before you had money to buy more?: never true In the past 12 mos, the food you bought just didn't last and you didn't have money to buy more?: never true Smoking Status: Former smoker Do you use any of these nicotine containing products: None Second hand tobacco smoke exposure: No How often does anyone, including family, friends and others, physically hurt you : never How often does anyone, including family, friends and others, insult or talk down to you: never How often does anyone, including family, friends and others, threaten you with harm: never How often does anyone, including family, friends and others, scream or curse at you: never Little interest or pleasure in doing things: not at all Feeling down, depressed, or hopeless: several days service: No Meds Home Medications and Allergies Allergies Allergy/AdvReac Type Severity Reaction Status Date / Time Penicillins Allergy Intermediate Hives Verified 10/14/23 16:20 Results Labs Labs: Laboratory Results - last 24 hr 10/14/23 18:46 WBC 6.86 RBC 3.77 L Hgb 12.1 Hct 35.8 MCV 95 MCH 32 MCHC 34 RDW Coeff of Saw 14.4 Plt Count 168 Neut % (Auto) 72.1 H Lymph % (Auto) 20.8 [place] % (Auto) 6.1 Eos % (Auto) 0.3 Baso % (Auto) 0.3 Neut # (Auto) 4.90 Lymph # (Auto) 1.43 [place] # (Auto) 0.40 Eos # (Auto) 0.02 Baso # (Auto) 0.02 Abs Immat Gran (auto) 0.03 Imm/Tot Granulo (auto) 0.4 Blood Type A Positive Antibody Screen NEGATIVE Vital Signs Vital Signs: Last Vital Signs Temp 97.6 F 10/15/23 04:30 Pulse 103 H 10/15/23 05:32 Resp 16 10/14/23 18:25 BP 163/68 H 10/15/23 05:32 Pulse Ox 100 10/15/23 05:27 Weight: 114.94 kg Height: 165.1 cm Anesthesia Procedures Epidural Insertion Patient Location: OB Start Time: 05:00 Stop Time: 06:00 Start Date: 10/15/23 Stop Date: 10/15/23 Reason for Block: primary anesthetic Patient Position: sitting Performed By: Juan Antonio Bone Preanesthetic Checklist: IV checked, risks and benefits discussed and anesthesia consent Prep: chlorhexidine gluconate Monitoring: blood pressure monitoring, continuous pulse oximetry and heart rate Approach: midline Vertebral Space: lumbar (1-5) Epidural Technique: EDILMA saline Needle Type: Tuohy needle Injection Technique: continuous catheter Needle gauge: 17 Needle Length (cm): 10 cm Needle Insertion Depth (cm): 9 Catheter Gauge: 19 Catheter Type: multi-orifice Catheter at skin depth (cm): 13 Test Dose Result: negative and lidocaine 1.5% with epinephrine 1 to 200,000
[2023-10-15] MEDS: OXYTOCIN 30 unit/500 ML in NS 30 UNIT/500 ML BAG 300 UNIT IVPB (06:26)
--- NOTE | 2023-10-15 06:40 | W.PM.OBVAGDE ---
OB Procedure Vag Delivery Mother Details Mother Details: The patient is a 33 year-old, 2, Para 1001, admitted on 10/14/23 at 38 6/7 weeks gestation for elective induction of labor with cervical ripening. : 2 Para: 1 Weeks Gestation: 38.6 Admission Date: 10/14/23 Additional Details Amniotic Membrane Rupture Date: 10/16/23 Amniotic Membrane Rupture Time: 06:41 Amniotic Membrane Fluid Description: Clear Analgesia/Anesthesia Type: Epidural Waterbirth: No [place]: No Intrapartal Events: Labor Induction Induction Method: per misoprostol protocol (1 dose vaginal misoprostol 25 mcg @1826 on 10/14/23) Labor Onset: 04:20 Complete: 06:16 Pushin:16 Heart: heart tones during second stage were 160s baseline with variable decelerations to 120s, good variability. Delivery Details Delivery Date: 10/15/23 Delivery Time: 06:25 Route of delivery: Gender: Female Infant Viability: Alive; Heart Rate Present Position at Delivery: OA Delivery Details: Delivered over intact perineum via spontaneous vaginal delivery. Infant was placed on maternal abdomen.? Cord was clamped and cut after a 30-60 second delay. Nose and mouth were bulb suctioned.? Infant weight pending. 1 Minute Interval Total Score: 8 5 Minute Interval Total Score: 8 Additional Details Shoulder Dystocia: No Placenta Delivery Time: 06:32 Placental Delivery Description: Spontaneous (possible velamentous cord insertion noted) Procedure Done: Global Blood Loss: 500 Laceration: None Episiotomy Description: None Blood Loss Measurement Type: QBL Bakri Used: No Sponge/Need Count Correct: Yes Cord Vessel Description: 3 Vessels Event Summary Status: Mother and were stable after delivery. Disposition: floor
[2023-10-15] MEDS: IBUPROFEN 600 MG TABLET PO ×3 (07:23→21:31)
[2023-10-15] MEDS: DOCUSATE SODIUM 100 MG CAPSULE PO (07:23)
[2023-10-15] MEDS: ACETAMINOPHEN 500 MG TABLET 1000 MG PO (15:31)
[2023-10-15] MEDS: MEASLES,MUMPS,RUBELLA VACC/PF 1 DOSE INJ 1 EACH SUBCUT (15:32)
[2023-10-16 00:15] VITALS: BP 121/75; PULSE 104; RESP 18; TEMP 36.4; O2SAT 97
[2023-10-16] MEDS: ACETAMINOPHEN 500 MG TABLET 1000 MG PO (00:42)
[2023-10-16 04:15] VITALS: BP 119/78; PULSE 103; RESP 20; TEMP 36.5; O2SAT 97
[2023-10-16] MEDS: IBUPROFEN 600 MG TABLET PO (04:19)
[2023-10-16 06:14] LABS: Hemoglobin* 9.7 gm/dL (12.0-16.0)
--- NOTE | 2023-10-16 07:33 | P.DS_ITS ---
DS: Providers Provider Date Seen: 10/16/23 Date of admission: 10/14/23 15:49 Primary care physician: Not a Local Provider Admitting Clinician: Fidelia Jama MD Attending Physician on discharge: Maryjo Schwartz CNM DS: Diagnosis Discharge Diagnosis (1) care and examination immediately after delivery: Status: Acute (2) Lactating mother: Status: Acute (3) Depression: Status: Chronic (4) Anxiety: Status: Chronic (5) Anemia due to acute blood loss: Status: Acute (6) Elevated BP without diagnosis of hypertension: Status: Acute Exam Narrative: Exam Narrative: GENERAL APPEARANCE:? normal affect, alert, no distress MOOD:? appropriate CHEST:? clear to auscultation HEART:? regular rate and rhythm ABDOMEN:? soft, non-tender the uterine fundus is 1 below Umbilicus, Midline and is appropriate for the stage of recovery. PERINEUM:? mild edema of the perineum. EXTREMITIES:? normal and trace edema Const: Vital Signs, click to edit/add: Vital Signs - 24 hr 10/15/23 07:46 10/15/23 08:01 10/15/23 08:16 Temperature Pulse Rate 83 86 76 Pulse Rate [Pulse Oximeter] Respiratory Rate Blood Pressure 115/67 111/64 107/56 L Blood Pressure [Le ft Arm] Pulse Oximetry Oxygen Delivery Me thod 10/15/23 11:11 10/15/23 15:35 10/15/23 18:24 Temperature 98.1 F 98.3 F Pulse Rate Pulse Rate [Pulse Oximeter] 90 81 Respiratory Rate 16 16 Blood Pressure Blood Pressure [Le ft Arm] 119/78 134/87 124/85 Pulse Oximetry 97 97 Oxygen Delivery Me thod Room Air Room Air 10/15/23 20:00 10/16/23 00:15 10/16/23 04:15 Temperature 97.7 F 97.6 F 97.7 F Pulse Rate Pulse Rate [Pulse Oximeter] 91 104 H 103 H Respiratory Rate 18 18 20 Blood Pressure Blood Pressure [Le ft Arm] 119/78 121/75 119/78 Pulse Oximetry 98 97 97 Oxygen Delivery Me thod Room Air Room Air OB - DS: Summary Hospital Course Hospital Course: Stefani is a 33 y.o. G 2 P 2 who was admitted to [facility] for elective IOL. ?She had a NVD that was uncomplicated. The patient feels well and desires to go home today ?The pain is well controlled with current medications. ?She has no new complaints. ?She is breast feeding and reports things are going well. the patient has done well.? Vitals have been stable.? She has remained afebrile.? Has a good appetite, is tolerating a general diet. ?She is voiding without difficulty.? She is passing gas and has had a bowel movement.? She is ambulating and denies any dizziness.? Has small amount of rubra lochia. She is planning possibly an implanted device for prevention. Problems: Anemia plan: Discharge home with baby. Follow up in 2 weeks and 6 weeks. , may see if needed Hgb 9.7. Iron supplement ordered orally every other day Elevated BP without diagnosis of HTN Call for signs/symptoms of preeclampsia Peripartum Data Infant delivery method: Vaginal Laceration description: None complications: none Gender: Female Discharge Plan: Home Status at Discharge Functional status at discharge: independent ambulation Overall status at discharge: patient is progressing back to baseline Time Spent with Patient Time attestation: Total time spent providing and/or coordinating discharge services: Discharge Plan Discharge Disposition: Home, Self-Care Date of Admission: 10/14/23 15:49 Attending Provider on Discharge: Maryjo Schwartz Primary Care Provider: Provider,Not a Local Condition: Stable Anticipated Discharge Date/Time: 10/16/23 12:00 Discharge Medications: New docusate sodium 100 mg Capsule 100 mg PO DAILY Qty: 90 0RF ibuprofen 600 mg Tablet 600 mg PO Q6H PRNQty: 60 0RF acetaminophen 500 mg Tablet 1,000 mg PO Q6H PRNQty: 0 0RF Continued Classic 28 mg iron- 800 mcg tablet 1 tab PO .QD Qty: 60 3RF doxylamine-pyridoxine (vit B6) [Diclegis] 10-10 mg tablet,delayed release (DR/EC) 1 tab PO QDAY Qty: 60 0RF ferrous sulfate 325 mg (65 mg iron) tablet 325 mg PO Q OTHER DAY Qty: 90 3RF Discharge Orders: Discharge Order (Routine); Ordered 10/16/23 Ordered By: Maryjo Schwartz Patient Education: OB Over the Counter Medication Information, OB Vaginal/Breast Feeding Follow Up Appointments: [facility] [Provider Group] Forms: [employer] Info Instructions
[2023-10-16 07:50] VITALS: BP 120/81; PULSE 83; RESP 16; TEMP 36.4; O2SAT 97
[2023-10-16] MEDS: FERROUS SULFATE 325 MG TABLET PO (08:50)
[2023-10-16] MEDS: DOCUSATE SODIUM 100 MG CAPSULE PO (08:50)
--- NOTE | 2023-10-16 10:58 | PM.ANPOST ---
Post Anesthesia Note Post Anesthesia Note Patient seen: Inpatient Respiratory Status: adequate Cardiovascular Status: adequate Mental Status: baseline Pain: adequate Temp: baseline Anesthetic awareness: N/A Complications: none Follow care: none
== END 2023-10-16 12:35 | disposition home or self-care (01) | DRG 560 ==
PROVIDERS: Admitting Provider Obstetrics & Gynecology; Visit Provider Obstetrics & Gynecology
DX: O26 Maternal care for other conditions predominantly related to pregnancy (principal); O99.344 Other mental disorders complicating childbirth; F32.A Depression, unspecified; F41.9 Anxiety disorder, unspecified; O99.02 Anemia complicating childbirth; D62 Acute posthemorrhagic anemia; R03.0 Elevated blood-pressure reading, without diagnosis of hypertension; Z3A.38 38 weeks gestation of pregnancy; Z37.0 Single live birth
CPT/HCPCS: 01967; 36415; 59200; 85018; 85025; 86850; 86900; 86901; 88307; A9270; J2371; J2795; J3010; J7120

== ENCOUNTER 2025-03-03 12:01 | Outpatient (CLI) | payer BC, SELFPAY | END 2025-03-03 12:02 | disposition home or self-care (01) | PROVIDERS: PCP Family Medicine; Visit Provider Family Medicine | DX: E66.09 Other obesity due to excess calories (principal); R53.83 Other fatigue; Z68.42 Body mass index [BMI] 45.0-49.9, adult | CPT/HCPCS: 80048; 84443; 85025 ==